=== PATIENT | female | born 1950 | race Caucasian/White ===

== ENCOUNTER → 2022-05-17 | Outpatient (CLI) | payer MEDICARE ==
[~2022-05-17] MED LIST: AMOXICILLIN 8751 TAB PO; CLARITIN10 MG PO; CLEOCIN HCL150 M1 PO; METFORMIN500 MG PO; MOMETASONE TP; NORCO 325 MG-51 TAB PO; ROXICODONE15 M1 PO; VIBRAMYCIN100 MG PO
[2022-05-17 10:02] LABS: BASO # 0.08 K/mm3 (0.02-0.10); EOS # 0.15 K/mm3 (0.04-0.40); EOS % 1.9 % (1.0-5.0); HEMATOCRIT 43.5 % (37.0-47.0); HEMOGLOBIN 14.3 g/dL (12.5-16.0); LYMPH# 2.39 K/mm3 (1.50-4.00); MEAN CELL VOLUME 90 fl (78-100); MEAN CORPUSCULAR HEMOGLOBIN 30 pg (27-31); MEAN CORPUSCULAR HGB CONC 33 g/dL (33-37); MEAN PLATELET VOLUME 8.5 fl (7.4-10.4); MONO # 0.43 K/mm3 (0.20-0.80); NEU # 4.69 K/mm3 (1.40-6.50); PLATELET COUNT 519 K/mm3 (130-400); RED BLOOD COUNT 4.82 M/mm3 (4.10-5.30); WHITE BLOOD COUNT 7.8 K/mm3 (4.8-10.8)
[2022-05-17 10:10] LABS: URINE APPEARANCE CLEAR; URINE COLOR YELLOW
[2022-05-17 10:11] LABS: MAGNESIUM 1.73 mg/dL (1.60-2.60); URINE BILIRUBIN NEGATIVE (NEGATIVE); URINE BLOOD NEGATIVE (NEGATIVE); URINE GLUCOSE NEGATIVE (NEGATIVE); URINE KETONE NEGATIVE (NEGATIVE); URINE LEUKOCYTE ESTERASE TRACE (NEGATIVE); URINE NITRATE NEGATIVE (NEGATIVE); URINE PROTEIN(semi-quant) NEGATIVE (NEGATIVE); URINE UROBILINOGEN NORMAL (NORMAL)
[2022-05-20 13:43] LABS: ALBUMIN 4.4 g/dL (3.4-4.8)
[2022-05-20 13:44] LABS: POTASSIUM 4.9 mmol/L (3.5-5.1)
[2022-05-20 13:45] LABS: CALCIUM 9.7 mg/dL (8.3-10.5)
[2022-05-20 13:46] LABS: TOTAL PROTEIN 7.3 g/dL (6.2-8.1)
[2022-05-20 13:48] LABS: TOTAL BILIRUBIN 0.4 mg/dL (0.2-1.2)
== END ==
LOC: LAB 09:35
PROVIDERS: Internal Medicine
DX: Z12.31 Encounter for screening mammogram for malignant neoplasm of breast (principal); E11.9 Type 2 diabetes mellitus without complications; F32.1 Major depressive disorder, single episode, moderate; G60.9 Hereditary and idiopathic neuropathy, unspecified; M54.16 Radiculopathy, lumbar region; M85.80 Other specified disorders of bone density and structure, unspecified site

== ENCOUNTER → 2022-06-18 | Outpatient (CLI) | payer MEDICARE | LOC: MAMMO 13:29 | DX: Z12.31 Encounter for screening mammogram for malignant neoplasm of breast (principal); Z13.820 Encounter for screening for osteoporosis; M85.88 Other specified disorders of bone density and structure, other site; M85.851 Other specified disorders of bone density and structure, right thigh ==

== ENCOUNTER → 2022-07-05 | Outpatient (CLI) | payer MEDICARE | LOC: CARDREHAB 08:07 | DX: R06.00 Dyspnea, unspecified (principal) | CPT/HCPCS: A9500; J2785 ==

== ENCOUNTER → 2022-07-11 | Outpatient (CLI) | payer MEDICARE ==
[2022-07-11 11:20] LABS: BASO # 0.05 K/mm3 (0.02-0.10); EOS # 0.23 K/mm3 (0.04-0.40); EOS % 3.5 % (1.0-5.0); HEMATOCRIT 39.3 % (37.0-47.0); HEMOGLOBIN 12.9 g/dL (12.5-16.0); LYMPH# 2.55 K/mm3 (1.50-4.00); MEAN CELL VOLUME 92 fl (78-100); MEAN CORPUSCULAR HEMOGLOBIN 30 pg (27-31); MEAN CORPUSCULAR HGB CONC 33 g/dL (33-37); MEAN PLATELET VOLUME 8.4 fl (7.4-10.4); MONO # 0.47 K/mm3 (0.20-0.80); NEU # 3.28 K/mm3 (1.40-6.50); PLATELET COUNT 435 K/mm3 (130-400); RED BLOOD COUNT 4.29 M/mm3 (4.10-5.30); RED CELL DISTRIBUTION WIDTH 12.6 % (11.5-14.5); WHITE BLOOD COUNT 6.6 K/mm3 (4.8-10.8)
[2022-07-11 11:31] LABS: POTASSIUM 3.9 mmol/L (3.5-5.1)
[2022-07-11 11:32] LABS: CALCIUM 9.1 mg/dL (8.3-10.5)
[2022-07-11 11:33] LABS: TOTAL PROTEIN 6.8 g/dL (6.2-8.1)
[2022-07-11 11:35] LABS: TOTAL BILIRUBIN 0.3 mg/dL (0.2-1.2)
[2022-07-11 11:37] LABS: PARTIAL THROMBOPLASTIN TIME 25.7 SECONDS (21.0-32.0); PROTHROMBIN TIME 9.9 SECONDS (9.0-12.0)
[2022-07-11 11:40] LABS: MAGNESIUM 1.89 mg/dL (1.60-2.60)
[2022-07-11 15:30] LABS: URINE APPEARANCE HAZY; URINE COLOR YELLOW
[2022-07-11 15:31] LABS: URINE BILIRUBIN NEGATIVE (NEGATIVE); URINE BLOOD NEGATIVE (NEGATIVE); URINE GLUCOSE NEGATIVE (NEGATIVE); URINE KETONE NEGATIVE (NEGATIVE); URINE LEUKOCYTE ESTERASE TRACE (NEGATIVE); URINE NITRATE NEGATIVE (NEGATIVE); URINE PROTEIN(semi-quant) TRACE (NEGATIVE); URINE UROBILINOGEN NORMAL (NORMAL)
== END ==
LOC: RAD 10:07
PROVIDERS: Internal Medicine
DX: Z01.810 Encounter for preprocedural cardiovascular examination (principal); Z01.812 Encounter for preprocedural laboratory examination

== ENCOUNTER → 2022-11-21 | Outpatient (CLI) | payer MEDICARE | LOC: RAD 14:42 | DX: K44.9 Diaphragmatic hernia without obstruction or gangrene (principal); K63.89 Other specified diseases of intestine | CPT/HCPCS: Q9967 ==

== ENCOUNTER → 2023-09-18 | Outpatient (CLI) | payer MEDICARE ==
[~2023-09-18] MED LIST changes: +MORGIDOX 1X100100 MG PO; +PREDNISONE20 M1 PO; +PREDNISONE20 MG PO; +PROVENTIL0.09 MG/A1 IH
[2023-09-18 10:47] LABS: BASO # 0.05 K/mm3 (0.02-0.10); EOS # 0.23 K/mm3 (0.04-0.40); HEMATOCRIT 38.4 % (37.0-47.0); HEMOGLOBIN 12.3 g/dL (12.5-16.0); LYMPH# 2.06 K/mm3 (1.50-4.00); MEAN CELL VOLUME 96 fl (78-100); MEAN CORPUSCULAR HEMOGLOBIN 31 pg (27-31); MEAN CORPUSCULAR HGB CONC 32 g/dL (33-37); MEAN PLATELET VOLUME 8.4 fl (7.4-10.4); MONO # 0.39 K/mm3 (0.20-0.80); NEU # 2.98 K/mm3 (1.40-6.50); PLATELET COUNT 359 K/mm3 (130-400); RED BLOOD COUNT 3.99 M/mm3 (4.10-5.30); RED CELL DISTRIBUTION WIDTH 12.5 % (11.5-14.5); WHITE BLOOD COUNT 5.7 K/mm3 (4.8-10.8)
[2023-09-18 11:00] LABS: ALBUMIN 4.1 g/dL (3.4-4.8)
[2023-09-18 11:01] LABS: CALCIUM 8.9 mg/dL (8.3-10.5)
[2023-09-18 11:03] LABS: TOTAL PROTEIN 6.2 g/dL (6.2-8.1)
[2023-09-18 11:04] LABS: TOTAL BILIRUBIN 0.6 mg/dL (0.2-1.2)
== END ==
LOC: LAB 10:35
PROVIDERS: Internal Medicine
DX: F32.A Depression, unspecified (principal); E11.9 Type 2 diabetes mellitus without complications; K90.9 Intestinal malabsorption, unspecified

== ENCOUNTER → 2023-11-13 | Outpatient (CLI) | payer MEDICARE | LOC: RAD 11:57 | DX: R05.9 Cough, unspecified (principal) ==

== ENCOUNTER → 2024-04-23 | Outpatient (CLI) | payer MEDICARE | LOC: MAMMO 08:30 | DX: Z12.31 Encounter for screening mammogram for malignant neoplasm of breast (principal) ==

== ENCOUNTER → 2024-04-23 | Outpatient (CLI) | payer MEDICARE | LOC: RAD 09:36 | DX: R07.81 Pleurodynia (principal) ==

== ENCOUNTER → 2024-05-11 | Outpatient (CLI) | payer MEDICARE | LOC: RAD 07:00 | DX: M51.16 Intervertebral disc disorders with radiculopathy, lumbar region (principal); M48.061 Spinal stenosis, lumbar region without neurogenic claudication; M43.16 Spondylolisthesis, lumbar region; M41.86 Other forms of scoliosis, lumbar region ==

== ENCOUNTER → 2024-06-04 | Outpatient (CLI) | payer MEDICARE | LOC: RAD 09:54 | DX: M50.122 Cervical disc disorder at C5-C6 level with radiculopathy (principal); M50.123 Cervical disc disorder at C6-C7 level with radiculopathy; M41.84 Other forms of scoliosis, thoracic region ==

== ENCOUNTER → 2024-09-27 | Outpatient (CLI) | payer MEDICARE ==
[2024-09-27 10:51] LABS: BASO # 0.04 K/mm3 (0.02-0.10); EOS # 0.09 K/mm3 (0.04-0.40); EOS % 1.2 % (1.0-5.0); HEMATOCRIT 42.6 % (37.0-47.0); LYMPH# 1.88 K/mm3 (1.50-4.00); MEAN CELL VOLUME 93 fl (78-100); MEAN CORPUSCULAR HEMOGLOBIN 31 pg (27-31); MEAN CORPUSCULAR HGB CONC 33 g/dL (33-37); MEAN PLATELET VOLUME 8.1 fl (7.4-10.4); MONO # 0.41 K/mm3 (0.20-0.80); NEU # 4.92 K/mm3 (1.40-6.50); PLATELET COUNT 436 K/mm3 (130-400); RED BLOOD COUNT 4.59 M/mm3 (4.10-5.30); RED CELL DISTRIBUTION WIDTH 12.7 % (11.5-14.5); WHITE BLOOD COUNT 7.4 K/mm3 (4.8-10.8)
[2024-09-27 10:59] LABS: ALBUMIN 4.9 g/dL (3.4-4.8)
[2024-09-27 11:01] LABS: TOTAL PROTEIN 7.9 g/dL (6.2-8.1)
[2024-09-27 11:03] LABS: TOTAL BILIRUBIN 0.4 mg/dL (0.2-1.2)
[2024-09-27 11:07] LABS: MAGNESIUM 1.68 mg/dL (1.60-2.60)
[2024-09-27 11:08] LABS: PH-URINE 5.5 (5.0 - 8.0); URINE APPEARANCE CLEAR (CLEAR); URINE BILIRUBIN NEGATIVE (NEGATIVE); URINE BLOOD NEGATIVE (NEGATIVE); URINE COLOR YELLOW (YELLOW); URINE GLUCOSE NEGATIVE (NEGATIVE); URINE KETONE NEGATIVE (NEGATIVE); URINE LEUKOCYTE ESTERASE NEGATIVE (NEGATIVE); URINE NITRATE NEGATIVE (NEGATIVE); URINE PROTEIN(semi-quant) NEGATIVE (NEGATIVE); URINE WBC 0-1 /hpf (0-3)
== END ==
LOC: LAB 10:32
PROVIDERS: Internal Medicine
DX: F32.A Depression, unspecified (principal); K90.9 Intestinal malabsorption, unspecified; E78.2 Mixed hyperlipidemia; E11.9 Type 2 diabetes mellitus without complications